=== PATIENT | male | born 2000 | race Caucasian/White ===

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

== ENCOUNTER 2018-02-25 16:32 | Outpatient (CLI) | payer OTHER ==
--- NOTE | 2018-02-26 12:03 | MRI Report ---
Reason: LOW BACK PAIN Procedure Date: 02/25/2018 Accession Number: [id number] / [id number] Procedure: MRI - Lumbar Spine W/O CPT Code: FULL RESULT: EXAM: MRI LUMBAR SPINE WITHOUT CONTRAST EXAM DATE: 02/25/2018 06:05 PM. CLINICAL HISTORY: Low back pain. COMPARISON: None. TECHNIQUE: Multiplanar, multisequence T1-weighted and fluid-sensitive sequences of the lumbar spine from T12 to S1 without contrast. Other: None. FINDINGS: Spinal Canal: The conus terminates at T12-L1. The conus medullaris and cauda equina are unremarkable. Alignment: 17 degrees convex left scoliosis centered at L2-L3. 3 mm anterolisthesis at L5 on S1. Bone Marrow: Five [id number] lumbar vertebral bodies are assumed. No gross acute fracture. 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 Suggestion of sclerosis at the osseous margins without gross adjacent bone marrow edema. Fatty marrow noted in the L5 pedicles. Disk Levels/Facets: T12-L1: Unremarkable. L1-L2: Unremarkable. L2-L3: Unremarkable. L3-L4: Unremarkable. L4-L5: Unremarkable. L5-S1: Disk desiccation and minimal disk height loss. Uncovering of the disk and small broad-based disk bulge. No central canal stenosis. Mild to moderate bilateral neural foramen stenosis. Disk results in mass effect on the exiting L5 nerve roots, right greater than left. Musculature: No fatty atrophy or edema. Other: The partially visualized retroperitoneum is unremarkable. IMPRESSION: 1. Mild convex left scoliosis. 2. Grade 1 anterolisthesis at L5 on S1. 3. 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 4. Uncovering of the disk and broad-based disk bulge at L5-S1 contributing to mild to moderate bilateral neural foramen stenosis with mass effect on the exiting L5 nerve roots. Comment: The following findings are so common in adults without low back pain that while we report their presence, they must be interpreted with caution and in the context of the clinical situation. (Reference Sethk et al, Spine 2001) Prevalence of findings in patients without low back pain: Disk degeneration (any evidence): 92% Disk desiccation/T2 signal loss: 83% Disk height loss: 56% Disk bulge: 64% Disk protrusion: 32% Annular tear/high intensity zone: 38% [facility]
== END 2018-02-25 16:33 | disposition home or self-care (01) ==
LOC: DI 16:32
PROVIDERS: ATTEND General Practice
DX: M43.06 Spondylolysis, lumbar region (principal); M41.9 Scoliosis, unspecified
CPT/HCPCS: 72148

== ENCOUNTER 2018-03-26 15:41 | Emergency (ER) | payer OTHER ==
--- NOTE | 2018-03-26 17:39 | ED Physician Documentation ---
PD HPI BACK PAIN - Stated complaint Stated Complaint: LEG NUMBNESS - Chief complaint Chief Complaint: Back Pain - History obtained from History obtained from: Patient - History of Present Illness Timing - onset: Yesterday (he has had lower back pain with numbness to left leg at times. Has had this for couple of months without abrupt injury per se. Has had meds and PT for it, and subsequently had MRI lumbar in February showing L5 herniated disc with some compression of nerve roots. Was referred to back specialist in [place], Dr. Carlin, and has upcoming appt in few weeks. However has had onset of persistent and progressive numbness and weakness of left leg the past 1 1/2 days. He was able to walk dragging foot to car and then into hospital. But during the time in ER waiting room, has worse weakness and neede wheelchairt to get back to room, as left leg would not hold him up.) Timing - duration: Days (worse pain to some degree, but mostly leg paresis and paresthesia.), Months (of some lower back pain intermittently.) Timing - details: Gradual onset, Still present Location: Lower, Right, Left Quality: Pain, Spasm, Aching Associated symptoms: Weakness (just today, gradual onset and progressively worsening.), Numbness (left leg, denies any at penis with urinating nor any perirectal numbness with wiping after BM yesterday.). No: Fever Worsened by: Movement. No: Twisting, Palpation Contributing factors: No: Trauma, Anticoagulated Similar symptoms before: Diagnosis (lumbar L5 HNP with nerve root compression based on MRI.) Review of Systems Constitutional: denies: Fever, Chills, Myalgias Nose: denies: Rhinorrhea / runny nose, Congestion Throat: denies: Dental pain / toothache, Sore throat Cardiac: denies: Chest pain / pressure, Palpitations Respiratory: denies: Dyspnea, Cough GI: denies: Abdominal Pain, Nausea, Vomiting, Diarrhea, Bloody / black stool Skin: denies: Rash, Lesions Musculoskeletal: reports: Back pain. denies: Neck pain Neurologic: reports: Focal weakness (just today), Numbness PD PAST MEDICAL HISTORY - Past Medical History Cardiovascular: None Respiratory: None Neuro: None Endocrine/Autoimmune: None Musculoskeletal: Other (low back pain the past few months. ) - Past Surgical History Past Surgical History: No - Present Medications Home Medications: Ambulatory Orders Medication Instructions Recorded Confirmed Loratadine [Claritin] 10 mg PO DAILY #3 10/31/17 predniSONE [Deltasone] 60 mg PO DAILY 5 Days #9 tablet 10/31/17 - Allergies Allergies/Adverse Reactions: Allergies Allergy/AdvReac Type Severity Reaction Status Date / Time No Known Drug Allergies Allergy Verified 03/26/18 15:55 - Social History Does the pt smoke?: No Smoking Status: Never smoker Does the pt drink ETOH?: No Does the pt have substance abuse?: No - Immunizations Immunizations are current?: Yes - POLST Patient has POLST: No PD ED PE NORMAL - Vitals Vital signs reviewed: Yes - General General: Alert and oriented X 3, No acute distress, Well developed/nourished - Neck Neck: Supple, no meningeal sign, No adenopathy - Cardiac Cardiac: RRR, No murmur - Respiratory Respiratory: Clear bilaterally - Abdomen Abdomen: Normal bowel sounds, Soft, Non tender, No organomegaly - Derm Derm: Normal color, Warm and dry, Other - Extremities Extremities: No edema, No calf tenderness / cord, Other (good pulses and cap refill in lower legs. ) - Neuro Neuro: Alert and oriented X 3, Normal speech, Other (The patient has diminished sensation to touch and pinprick and has poor sharp dull discrimination in the left leg in all dermatomes including lateral and medial. He has diminished reflex at the patellar area. He has weakness for plantar and dorsiflexion at the ankle as well as extension at the knee. He does have moderately strong hip flexion. He has sensation on the right perirectal area. He is diminished on the left perirectal area. He states normal sensation on the penis area when he went to the bathroom. He denies any incontinence of urine. The right leg has good full strength and normal reflexes. The back does not show any redness swelling or skin lesions. There is no percussion tenderness in the spine. Has 0-1+ DTR on left knee. normal 2+ DT on right knee. No edema. Has good pulses, color, and cap refill in ankles/feet. ) Eye Opening: Spontaneous Motor: Obeys Commands Verbal: Oriented GCS Score: 15 Results - Vitals Vitals: Vital Signs - 24 hr 03/26/18 03/26/18 03/26/18 15:52 19:38 21:00 Temperature 36.9 C 37.3 C 36.9 C Heart Rate 87 88 76 Respiratory 16 16 16 Rate Blood Pressure 118/80 130/84 H 119/77 O2 Saturation 99 100 97 Oxygen O2 Source Room air - Labs Labs: Laboratory Tests 03/26/18 03/26/18 03/26/18 18:23 18:23 18:23 WBC 7.9 RBC 5.48 Hgb 16.1 Hct 46.2 MCV 84.3 MCH 29.3 MCHC 34.8 RDW 12.4 Plt Count 312 MPV 7.9 Neut # (Auto) 4.3 Lymph # (Auto) 2.8 [place] # (Auto) 0.5 Eos # (Auto) 0.2 Baso # (Auto) 0.0 Absolute Nucleated RBC 0.01 Nucleated RBC % 0.1 ESR 1 Sodium 134 L Potassium 3.8 Chloride 99 L Carbon Dioxide 27 Anion Gap 8.0 BUN 19 Creatinine 0.9 Estimated GFR (MDRD) 109 Glucose 98 Calcium 9.5 Total Bilirubin 0.7 AST 27 ALT 21 Alkaline Phosphatase 140 H Total Protein 8.0 Albumin 5.0 Globulin 3.0 Albumin/Globulin Ratio 1.7 Lipase 35 PD MEDICAL DECISION MAKING - ED course Complexity details: reviewed old records, considered differential (consider progressive HNP with now central canal compression with caudal symptoms. No fevers nor rash, no dental work nor IVDU, so abscess is less likely. Inflammatory process such as transverse myelitis is possible. Will get some labs and I feel he needs urgen MRI, which is unavaiable for us until tomorrow, at best. Will likely need to transfer for imaging and NS consultation. ), d/w patient, d/w remediation bioanalytics consultant (I talked with Dr. Crisostomo who is on-call for Dr. Foss the neurosurgeon to whom the patient was referred. Given the abrupt progression of weakness and numbness in the leg, Dr. Crisostomo felt it appropriate to get an emergent MRI of the lumbar area. We are unable to do that here and so he advised transferring the patient to [facility] emergency room for imaging and then consultation by Dr. Crisostomo. I talked with Dr. Jef Butt who is the emergency physician at [place] who accepted transfer of the patient. He will be transferred by [facility]. He is stable for transfer.) Departure - Departure Disposition: 02 Transfer Acute Care Hosp Clinical Impression: Paresis of single lower extremity, Lumbar disc herniation Condition: Stable Record reviewed to determine appropriate education?: Yes Discharge Date/Time: 03/26/18 21:06
[2018-03-26] MEDS ORDERED: DEXAMETHASONE 10 MG/ML VIAL PO STA (18:11)
[2018-03-26] MEDS ORDERED: IBUPROFEN 600 MG TABLET PO STA (18:11)
[2018-03-26] MEDS ORDERED: CHERRY SYRUP 10 ML UDC PO ONE (18:25)
[2018-03-26 18:32] LABS: BASOPHILS % (AUTO) 0.5 %; EOSINOPHILS # (AUTO) 0.2 10^3/uL (0.0-0.7); EOSINOPHILS % (AUTO) 2.4 %; HGB - HEMOGLOBIN 16.1 g/dL (14.0-18.0); LYMPHOCYTES # (AUTO) 2.8 10^3/uL (1.5-3.5); LYMPHOCYTES % (AUTO) 35.8 %; MEAN CORPUSCULAR HEMOGLOBIN 29.3 pg (27.0-31.0); MEAN CORPUSCULAR HGB CONC 34.8 g/dL (32.0-36.0); MEAN CORPUSCULAR VOLUME 84.3 fL (80.0-94.0); MEAN PLATELET VOLUME 7.9 fL (7.4-11.4); MONOCYTES # (AUTO) 0.5 10^3/uL (0.0-1.0); MONOCYTES % (AUTO) 6.6 %; NEUTROPHILS # (AUTO) 4.3 10^3/uL (1.5-6.6); NEUTROPHILS % (AUTO) 54.7 %; PLT - PLATELET COUNT 312 10^3/uL (130-450); RED BLOOD COUNT 5.48 10^6/uL (4.70-6.10); RED CELL DISTRIBUTION WIDTH 12.4 % (12.0-15.0); WHITE BLOOD COUNT 7.9 x10^3/uL (4.8-10.8)
[2018-03-26 18:41] LABS: ALBUMIN/GLOBULIN RATIO 1.7 (1.0-2.2); BILIRUBIN,TOTAL 0.7 mg/dL (0.2-1.0); CALCIUM 9.5 mg/dL (8.5-10.3); CREATININE 0.9 mg/dL (0.6-1.2)
[2018-03-26 21:03] VITALS: BP 119/77
== END 2018-03-26 21:06 | disposition short-term general hospital (02) ==
LOC: ED 15:41
DX: G81.90 Hemiplegia, unspecified affecting unspecified side (principal); M51.26 Other intervertebral disc displacement, lumbar region
CPT/HCPCS: 36415; 80053; 83690; 85025; 85651; 99283; A9270

== ENCOUNTER 2019-06-28 10:23 | Emergency (ER) | payer OTHER ==
[2019-06-28 10:41] VITALS: BP 118/76
--- NOTE | 2019-06-28 12:22 | ED Physician Documentation ---
PD HPI URI - Stated complaint Stated Complaint: FEVER/COUGH SENT BY - Chief complaint Chief Complaint: Fever - History obtained from History obtained from: Patient - History of Present Illness Timing - onset: How many days ago (3) Timing duration: Days (3) Timing details: Gradual onset Pain level max: 0 Pain level now: 0 Associated symptoms: Fever (subjective), Nasal congestion, Rhinorrhea, Sore throat, Dry cough. No: Hemoptysis, Chest pain, Dyspnea Contributing factors: Sick contact Improves by: Rest Worsened by: Activity, Breathing Recently seen: Not recently seen Review of Systems Nose: reports: Rhinorrhea / runny nose, Congestion Skin: denies: Rash Musculoskeletal: denies: Neck pain, Back pain Neurologic: denies: Headache PD PAST MEDICAL HISTORY - Past Medical History Cardiovascular: None Respiratory: None Neuro: None Endocrine/Autoimmune: None GI: None : None HEENT: None Psych: None Musculoskeletal: Other Derm: None - Past Surgical History Past Surgical History: No - Present Medications Home Medications: Ambulatory Orders Medication Instructions Recorded Confirmed Loratadine [Claritin] 10 mg PO DAILY #3 10/31/17 predniSONE [Deltasone] 60 mg PO DAILY 5 Days #9 tablet 10/31/17 Benzonatate [Tessalon Perle] 100 - 200 mg PO TID PRN #30 capsule 06/28/19 Cetirizine HCl/Pseudoephedrine 1 each PO BID PRN #30 tab.er.12h 06/28/19 [Zyrtec-D Tablet] - Allergies Allergies/Adverse Reactions: Allergies Allergy/AdvReac Type Severity Reaction Status Date / Time No Known Drug Allergies Allergy Verified 06/28/19 10:38 - Social History Does the pt smoke?: No Smoking Status: Never smoker Does the pt drink ETOH?: No Does the pt have substance abuse?: No - Immunizations Immunizations are current?: Yes - POLST Patient has POLST: No PD ED PE NORMAL - Vitals Vital signs reviewed: Yes - General General: Alert and oriented X 3, No acute distress - HEENT HEENT: Ears normal, Moist mucous membranes, Pharynx benign - Neck Neck: Supple, no meningeal sign, No adenopathy - Cardiac Cardiac: RRR, Strong equal pulses - Respiratory Respiratory: No respiratory distress, Clear bilaterally - Abdomen Abdomen: Soft, Non tender, Non distended - Back Back: No spinal TTP - Derm Derm: Warm and dry, No rash - Neuro Neuro: Alert and oriented X 3 - Psych Psych: Normal mood, Normal affect Results - Vitals Vitals: Vital Signs - 24 hr 06/28/19 10:38 Temperature 37.4 C Heart Rate 90 Respiratory 17 Rate Blood Pressure 118/76 O2 Saturation 100 Oxygen O2 Source Room air PD MEDICAL DECISION MAKING - ED course Complexity details: considered differential, d/w patient ED course: Patient is well-appearing, nontoxic. Afebrile. No hypoxia. Lungs are clear to auscultation bilaterally. Appears to have a viral upper respiratory infection. We will continue supportive care at home. Patient counseled regarding signs and symptoms for which I believe and urgent re-evaluation would be necessary. Patient with good understanding of and agreement to plan and is comfortable going home at this time This document was made in part using voice recognition software. While efforts are made to proofread this document, sound alike and grammatical errors may occur. Departure - Departure Disposition: 01 Home, Self Care Clinical Impression: Viral URI with cough Condition: Good Instructions: ED URI Viral Follow-Up: DEONTE VICTORIA MD [Primary Care Provider] - Within 1 week Prescriptions: Benzonatate [Tessalon Perle] 100 - 200 mg PO TID PRN #30 capsule PRN Reason: Cough Cetirizine HCl/Pseudoephedrine [Zyrtec-D Tablet] 1 each PO BID PRN #30 tab.er.12h PRN Reason: nasal congestion Comments: Return if you worsen. Follow-up with your doctor for further care. Go home and rest. Drink plenty of fluids. [facility], do not return to work or school until your symptoms have subsided for at least 24 hours. Forms: Activity restrictions
== END 2019-06-28 12:30 | disposition home or self-care (01) ==
LOC: ED 10:23
DX: J06.9 Acute upper respiratory infection, unspecified (principal)
CPT/HCPCS: 99282; 99284

== ENCOUNTER 2019-09-04 01:48 | Outpatient (CLI) | payer OTHER | END 2019-09-04 01:49 | disposition EMS.NT | LOC: EMS 01:48 | PROVIDERS: ATTEND Surgery | DX: R06.02 Shortness of breath (principal) ==